=== PATIENT | female | born 1960 | race Caucasian/White ===

== ENCOUNTER 2017-10-31 13:08 | Emergency (ER) | payer MEDICAID, OTHER ==
[~2017-10-31] VITALS: Ht 170.2 cm; Wt 76.1 kg
[2017-10-31 13:10] VITALS: BP 129/85
== END 2017-10-31 13:57 | disposition home or self-care (01) ==
LOC: ED 13:51
DX: J98.01 Acute bronchospasm (principal); B34.9 Viral infection, unspecified
CPT/HCPCS: 71046; 99284

== ENCOUNTER 2019-07-17 02:56 | Emergency (ER) | payer OTHER ==
[~2019-07-17] VITALS: Ht 170.2 cm; Wt 76.7 kg
[2019-07-17] MEDS ORDERED: BUTA1CAP30 PO (03:20)
[2019-07-17] MEDS ORDERED: CLON1TAB PO (03:21)
[2019-07-17] MEDS ORDERED: TRAZ-137 PO (03:22)
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
[2019-07-17 04:19] VITALS: BP 123/70
[2019-07-17] MEDS ORDERED: IBUPROFEN 800 MG TABLET ONE (04:23)
[2019-07-17] MEDS ORDERED: METHOCARBAMOL 750 MG TABLET ONE (04:24)
--- NOTE | 2019-07-17 04:29 | NUR ---
PT MEDICATED ORDERED, STATED WILL HAVE FRIEND PROVIDE RIDE HOME.
[2019-07-17] MEDS ORDERED: METHOCARBAMOL 750 MG TABLET PO ONE (04:30)
[2019-07-17] MEDS ORDERED: IBUPROFEN 800 MG TABLET PO ONE (04:30)
--- NOTE | 2019-07-17 04:51 | NUR ---
REVIEWED DISCHARGE INSTRUCTIONS AND PRESCRIPTIONS W/ PT, VERBALIZED UNDERSTANDING TO INFORMATION PROVIDED INCLUDING FOLLOW UP CARE AND RETURN PRECAUTIONS, PT DENIED FEELING RELIEF W/ MEDICATIONS GIVEN AT THIS TIME. PT ABLE TO STAND UP AND GET DRESSED WITHOUT ASSISTANCE. PT AMBULATED FROM ED W/ FRIEND.
== END 2019-07-17 04:54 | disposition home or self-care (01) ==
LOC: ED 04:30
DX: G89.11 Acute pain due to trauma (principal); M54.2 Cervicalgia; M25.532 Pain in left wrist; M54.6 Pain in thoracic spine; F32.9 Major depressive disorder, single episode, unspecified; F41.1 Generalized anxiety disorder; Y04.8XXA Assault by other bodily force, initial encounter; Y93.89 Activity, other specified; Y92.89 Other specified places as the place of occurrence of the external cause; Y99.8 Other external cause status
CPT/HCPCS: 99283

== ENCOUNTER 2019-10-04 06:28 | Emergency (ER) | payer OTHER ==
[~2019-10-04] VITALS: Ht 170.2 cm; Wt 78.0 kg
[~2019-10-04 06:28] MED LIST: BUTA1CAP30 PO; CLON1TAB PO; TRAZ-175 PO
[2019-10-04 06:34] VITALS: BP 143/84
--- NOTE | 2019-10-04 06:59 | NUR ---
REPORT RECEIVED FROM PAWAN RN, ASSUMED CARE OF PT AT THIS TIME.
--- NOTE | 2019-10-04 07:20 | NUR ---
PT AMBULATED TO BR WITH STEADY GAIT, UA SAMPLE COLLECTED AND SENT TO LAB
[2019-10-04 07:32] LABS: BASOPHILS # (AUTO) 0.05 x10^3/uL (0-0.1); BASOPHILS % (AUTO) 1 % (0-1); EOSINOPHILS # (AUTO) 0.15 x10^3/uL (0-0.4); EOSINOPHILS % (AUTO) 3 % (1-7); LYMPHOCYTES # (AUTO) 2.04 x10^3/uL (1-3.4); LYMPHOCYTES % (AUTO) 45 % (22-44); MD NO; MEAN CORPUSCULAR HEMOGLOBIN 31.7 pg (27.0-34.8); MEAN CORPUSCULAR HGB CONC 33.3 g/dL (32.4-35.8); MEAN CORPUSCULAR VOLUME 95.4 fL (80-100); MEAN PLATELET VOLUME 9.3 fL (7.4-10.4); MONOCYTES # (AUTO) 0.32 x10^3/uL (0.2-0.8); MONOCYTES % (AUTO) 7 % (2-9); NEUTROPHILS # (AUTO) 2.01 x10^3/uL (1.8-6.8); NEUTROPHILS % (AUTO) 44 % (42-75); PLATELET COUNT 233 x10^3/uL (130-400); RED BLOOD COUNT 4.28 x10^6/uL (3.82-5.3); RED CELL DISTRIBUTION WIDTH 12.8 % (9.6-15.2)
[2019-10-04 07:40] LABS: ALANINE AMINOTRANSFERASE 37 U/L (12-78); ALBUMIN 3.3 g/dL (3.4-5.0); ANION GAP 5 mmol/L (5-15); CALCIUM 8.5 mg/dL (8.5-10.1); CHLORIDE 110 mmol/L (98-107); CREATININE 0.72 mg/dL (0.55-1.02)
[2019-10-04 07:42] LABS: ALKALINE PHOSPHATASE 107 U/L (45-117); BILIRUBIN,TOTAL 0.3 mg/dL (0.2-1.0); TOTAL PROTEIN 6.4 g/dL (6.4-8.2)
[2019-10-04 07:51] LABS: MICROSCOPIC NOT IND
[2019-10-04] MEDS ORDERED: KETOROLAC 60 MG/2 ML ONE (08:51)
[2019-10-04] MEDS ORDERED: KETOROLAC 30 MG/1 ML IM ONE (09:00)
== END 2019-10-04 09:37 | disposition home or self-care (01) ==
LOC: ED 08:30
DX: S61.235A Puncture wound without foreign body of left ring finger without damage to nail, initial encounter (principal); W46.0XXA Contact with hypodermic needle, initial encounter; Y93.89 Activity, other specified; Y92.69 Other specified industrial and construction area as the place of occurrence of the external cause; Y99.8 Other external cause status
CPT/HCPCS: 36415; 80053; 81003; 85025; 86705; 86706; 86803; 87340; 87806; 96372; 99283; J1885; G0475